=== PATIENT | female | born 1965 | race Two or more races ===

== ENCOUNTER 2022-02-14 10:17 | Outpatient (CLI) | payer BC, OTHER | END 2022-02-14 12:06 | disposition home or self-care (01) | LOC: LAB 10:17 → EDBD 10:17 → LAB 12:06 | DX: E03.9 Hypothyroidism, unspecified (principal) ==

== ENCOUNTER 2022-09-11 10:15 | Outpatient (CLI) | payer OTHER | END 2022-09-11 10:16 | disposition home or self-care (01) | LOC: LAB 10:15 | PROVIDERS: ATTEND Family Medicine | DX: D64.9 Anemia, unspecified (principal); E11.65 Type 2 diabetes mellitus with hyperglycemia; E78.5 Hyperlipidemia, unspecified; E03.9 Hypothyroidism, unspecified; Z12.11 Encounter for screening for malignant neoplasm of colon ==

== ENCOUNTER 2022-09-11 11:12 | Outpatient (CLI) | payer OTHER | END 2022-09-11 12:35 | disposition home or self-care (01) | LOC: MAMO-SONO 11:12 | PROVIDERS: ATTEND Family Medicine | DX: N64.4 Mastodynia (principal) ==

== ENCOUNTER 2022-09-12 10:58 | Outpatient (CLI) | payer OTHER | END 2022-09-12 10:59 | disposition home or self-care (01) | LOC: LAB 10:58 | PROVIDERS: ATTEND Family Medicine | DX: D64.9 Anemia, unspecified (principal); E11.65 Type 2 diabetes mellitus with hyperglycemia; E78.5 Hyperlipidemia, unspecified; E03.9 Hypothyroidism, unspecified; Z12.11 Encounter for screening for malignant neoplasm of colon ==

== ENCOUNTER 2022-10-17 08:19 | Outpatient (CLI) | payer OTHER | END 2022-10-17 08:25 | disposition home or self-care (01) | LOC: LAB 08:19 | DX: E03.8 Other specified hypothyroidism (principal) ==

== ENCOUNTER 2022-12-05 10:07 | Outpatient (CLI) | payer OTHER | END 2022-12-05 10:12 | disposition home or self-care (01) | LOC: LAB 10:07 | DX: E03.8 Other specified hypothyroidism (principal); Z00.01 Encounter for general adult medical examination with abnormal findings; R53.83 Other fatigue; L30.9 Dermatitis, unspecified; Z13.29 Encounter for screening for other suspected endocrine disorder ==

== ENCOUNTER 2023-03-03 18:04 | Emergency (ER) | payer OTHER ==
[~2023-03-03] VITALS: Ht 162.6 cm; Wt 63.5 kg
[2023-03-03] MEDS ORDERED: LEVOTHYROXINE50 MCG (18:37)
[2023-03-03] MEDS ORDERED: ARMOUR THYROID60 M1 PO (18:37)
[2023-03-03] MEDS ORDERED: MOBIC7.5 MG PO (21:47)
== END 2023-03-03 22:12 | disposition home or self-care (01) ==
LOC: ER 18:04
DX: S62.109A Fracture of unspecified carpal bone, unspecified wrist, initial encounter for closed fracture (principal); S49.81XA Other specified injuries of right shoulder and upper arm, initial encounter; W05.2XXA Fall from non-moving motorized mobility scooter, initial encounter; Y93.I9 Activity, other involving external motion; Y92.413 State road as the place of occurrence of the external cause; S50.311A Abrasion of right elbow, initial encounter; S60.811A Abrasion of right wrist, initial encounter; E03.9 Hypothyroidism, unspecified; Z88.6 Allergy status to analgesic agent; S89.81XA Other specified injuries of right lower leg, initial encounter

== ENCOUNTER 2024-01-17 13:03 | Outpatient (CLI) | payer OTHER ==
[~2024-01-17 13:03] MED LIST: ARMOUR THYROID60 M1 PO; LEVOTHYROXINE50 MCG; MOBIC7.5 MG PO
== END 2024-01-17 13:09 | disposition home or self-care (01) ==
LOC: RAD 13:03
PROVIDERS: ATTEND Orthopaedic Surgery
DX: M79.641 Pain in right hand (principal)